=== PATIENT | male | born 1955 | race Caucasian/White ===

== ENCOUNTER 2017-04-18 09:38 | Emergency (ER) | payer SELFPAY ==
[~2017-04-18] VITALS: Ht 170.2 cm; Wt 74.5 kg
[2017-04-18 09:41] VITALS: Ht 170.2 cm; Wt 74.5 kg
[2017-04-18] MEDS ORDERED: ONDANSETRON 4 MG INJ IV STA (10:01)
[2017-04-18] MEDS ORDERED: morphine 4 MG/ML VIAL IV STA (10:01)
[2017-04-18 10:38] LABS: BASOPHILS % 0.8 % (0.0-2.0); EOSINOPHILS % 0.8 % (0.0-7.0); HEMATOCRIT 41.7 % (42.0-52.0); HEMOGLOBIN 14.9 g/dl (14.0-18.0); LYMPHOCYTES # 1.3 10^3/ul (0.8-2.9); LYMPHOCYTES % 26.3 % (15.0-51.0); MEAN CORPUSCULAR HEMOGLOBIN 32.7 pg (29.0-33.0); MEAN CORPUSCULAR HGB CONC 35.7 g/dl (32.0-37.0); MEAN CORPUSCULAR VOLUME 91.4 fl (82.0-101.0); MEAN PLATELET VOLUME 9.1 fl (7.4-10.4); MONOCYTE # 0.4 10^3/ul (0.3-0.9); MONOCYTES % 7.9 % (0.0-11.0); NEUTROPHIL # 3.1 10^3/ul (1.6-7.5); NEUTROPHILS % 63.8 % (39.0-77.0); PLATELET COUNT 204 10^3/UL (140-415); RED BLOOD COUNT 4.56 10^6/ul (4.70-6.10); RED CELL DISTRIBUTION WIDTH 11.9 % (11.5-14.5); WHITE BLOOD COUNT 4.8 10^3/ul (4.8-10.8)
[2017-04-18 10:43] LABS: ADD UMIC YES; UR ASCORBIC ACID NEGATIVE (NEGATIVE); UR BILIRUBIN (Dip) NEGATIVE (NEGATIVE); UR BLOOD (Dip) 1+ mg/dL (NEGATIVE); UR CLARITY CLEAR (CLEAR); UR COLOR STRAW (YELLOW); UR GLUCOSE (Dip) NEGATIVE (NEGATIVE); UR KETONES (Dip) NEGATIVE (NEGATIVE); UR LEUKOCYTE ESTERASE (Dip) NEGATIVE Leu/ul (NEGATIVE); UR NITRITE (Dip) NEGATIVE (NEGATIVE); UR RBC 1 /HPF (0-5); UR SPECIFIC GRAVITY (Dip) 1.003 (1.003-1.030); UR TOTAL PROTEIN (Dip) NEGATIVE (NEGATIVE); UR UROBILINOGEN (Dip) NEGATIVE (NEGATIVE)
--- NOTE | 2017-04-18 10:43 | RADRPT ---
PROCEDURE: CT ABDOMEN AND PELVIS WITHOUT CONTRAST. CLINICAL INDICATION: Lower abdominal pain and periumbilical pain TECHNIQUE: CT scan of the abdomen and pelvis without contrast was performed on a multidetector hig h-resolution CT scanner. The patient was scanned without intravenous contrast. Coronal and sagittal reformatted images were obtained from the axial source images. Images were reviewed on a high-resol [employer] PACS workstation. The total exam CTDI equals 11.8 mGy and the total exam DLP equals 682.1 mGy- cm. One or more of the following dose reduction techniques were used: Automated exposure control. Adjustment of the mA and/or kV according to patient size. Use of iterative reconstruction technique. DICOM images are available COMPARISON: CT 12/26/2012 FINDINGS: CT abdomen: Bilateral bronchiectasis. The lungs are clear. The heart size is within normal limits. There is no s ignificant pericardial effusion. Hepatic morphology demonstrates nodular appearance of the borders of the liver. There is heterogeneo us appearance of the liver parenchyma. The gallbladder demonstrates small gallstones. No evidence of inflammatory changes. The spleen and pancreas are within normal limits. Both adrenal glands are within normal limits. Both kidneys are in normal anatomic position. No gross renal/ureteric calculi. No evidence of obstru ction or hydronephrosis. The visualized GI tract demonstrate normal caliber loops of small and large bowel. No evidence of jennifer wel obstruction. Stool filled loops of large bowel suggestive of constipation. Atherosclerotic calcification of the aorta is identified. There is no retroperitoneal lymphadenopath y. CT pelvis: The bladder is within normal limits. The prostate gland is calcified. The rectosigmoid colon demonst rate diverticulosis. No significant free fluid. No pelvic lymphadenopathy. The visualized osseous structures demonstrate multilevel degenerative disease of the spine. IMPRESSION: 1. Findings are suggestive of liver cirrhosis. Correlate with clinical history. No gross contour def orming masses noted at this time, although examination is limited without IV contrast. 2. Cholelithiasis, without gross CT evidence of inflammatory changes. 3. No gross renal/ureteric calculi. No evidence of obstruction or hydronephrosis. 4. No evidence of bowel obstruction. Sigmoid diverticulosis without evidence of diverticulitis. 5. No evidence of ascites. No evidence of free air or focal fluid collections. 6. Mild atherosclerosis of the aorta. RPTAT: AARR Esteban Townsend Physician Date Time Electronically viewed and signed by Esteban Townsend Physician on 04/18/2017 10:43 JL/
[2017-04-18 10:53] LABS: ALBUMIN 4.8 g/dl (3.3-4.9); ALBUMIN/GLOBULIN RATIO 1.29; BILIRUBIN,INDIRECT 0.7 mg/dl (0-1.1); BILIRUBIN,TOTAL 0.7 mg/dl (0.2-1.3); CALCIUM 9.6 mg/dl (8.4-10.2); CREATININE 0.59 mg/dl (0.61-1.24); POTASSIUM 3.8 mmol/L (3.5-5.1); TOTAL PROTEIN 8.5 g/dl (6.1-8.1)
[2017-04-18] MEDS ORDERED: ONDA4TAB14 PO (11:49)
[2017-04-18] MEDS ORDERED: HYDR-902 PO (11:49)
[2017-04-18 12:23] VITALS: BP 125/79; PULSE 64; RESP 18; TEMP 98.1
--- NOTE | 2017-04-18 13:11 | ERD ---
ER Documentation Chief Complaint Chief Complaint abd pain with pain with urination x yesterday HPI Patient is a 61-year-old male with cirrhosis who presents for abdominal pain. He had lower abdominal pain which started yesterday. It comes and goes. He has no fevers. He has nausea but no vomiting or diarrhea. He has no treatment as of yet. He did have some mild pain with urination. ROS All systems reviewed and are negative except as per history of present illness. Medications Home Meds Active Scripts Ondansetron (Ondansetron Odt) 4 Mg Tab.rapdis, 4 MG PO Q6H Y for NAUSEA AND/OR VOMITING, #10 TAB Prov:YOHANA FLAHERTY MD 04/18/17 Hydrocodone/Acetaminophen ([place] 10-325 Tablet) 1 Each Tablet, 1 TAB PO Q6H Y for PAIN, #7 TAB Prov:YOHANA FLAHERTY MD 04/18/17 Allergies Allergies: Coded Allergies: No Known Allergy (Unverified , 12/26/12) PMhx/Soc History of Surgery: Yes (HERNIA REPAIR) Anesthesia Reaction: No Hx Neurological Disorder: No Hx Respiratory Disorders: No Hx Cardiac Disorders: Yes (HIGH CHOLESTEROL) Hx Psychiatric Problems: No Hx Miscellaneous Medical Probl: No Hx Alcohol Use: Yes Hx Substance Use: No Hx Tobacco Use: No Smoking Status: Former smoker FmHx Family History: No diabetes Physical Exam Vitals Vital Signs Date Time Temp Pulse Resp B/P Pulse Ox O2 Delivery O2 Flow Rate FiO2 04/18/17 12:23 98.1 64 18 125/79 97 Room Air 04/18/17 09:41 98.9 90 19 145/78 96 Physical Exam Const: No acute distress Head: Atraumatic Eyes: Normal Conjunctiva ENT: Normal External Ears, Nose and Mouth. Neck: Full range of motion..~ No meningismus. Resp: Clear to auscultation bilaterally Cardio: Regular rate and rhythm, no murmurs Abd: Soft, lateral lower abdominal tenderness to palpation without rebound or guarding Skin: No petechiae or rashes Back: No midline or flank tenderness Ext: No cyanosis, or edema Neur: Awake and alert Psych: Normal Mood and Affect Result Diagram: 04/18/17 1012 04/18/17 1012 Results 24 hrs Laboratory Tests Test 04/18/17 10:12 White Blood Count 4.810^3/ul Red Blood Count 4.5610^6/ul Hemoglobin 14.9g/dl Hematocrit 41.7% Mean Corpuscular Volume 91.4fl Mean Corpuscular Hemoglobin 32.7pg Mean Corpuscular Hemoglobin Concent 35.7g/dl Red Cell Distribution Width 11.9% Platelet Count 02827^3/UL Mean Platelet Volume 9.1fl Neutrophils % 63.8% Lymphocytes % 26.3% Monocytes % 7.9% Eosinophils % 0.8% Basophils % 0.8% Nucleated Red Blood Cells % 0.0/100WBC Neutrophils # 3.110^3/ul Lymphocytes # 1.310^3/ul Monocytes # 0.410^3/ul Eosinophils # 0.010^3/ul Basophils # 0.010^3/ul Nucleated Red Blood Cells # 0.010^3/ul Urine Color STRAW Urine Clarity CLEAR Urine pH 9.0 Urine Specific [place] 1.003 Urine Ketones NEGATIVEmg/dL Urine Nitrite NEGATIVEmg/dL Urine Bilirubin NEGATIVEmg/dL Urine Urobilinogen NEGATIVEmg/dL Urine Leukocyte Esterase NEGATIVELeu/ul Urine Microscopic RBC 1/HPF Urine Microscopic WBC 0/HPF Urine Hemoglobin 1+mg/dL Urine Glucose NEGATIVEmg/dL Urine Total Protein NEGATIVEmg/dl Sodium Level 142mmol/L Potassium Level 3.8mmol/L Chloride Level 101mmol/L Carbon Dioxide Level 27mmol/L Anion Gap 18 Blood Urea Nitrogen 4mg/dl Creatinine 0.59mg/dl Glucose Level 119mg/dl Calcium Level 9.6mg/dl Total Bilirubin 0.7mg/dl Direct Bilirubin 0.00mg/dl Indirect Bilirubin 0.7mg/dl Aspartate Amino Transf (AST/SGOT) 124IU/L Alanine Aminotransferase (ALT/SGPT) 88IU/L Alkaline Phosphatase 113IU/L Total Protein 8.5g/dl Albumin 4.8g/dl Globulin 3.70g/dl Albumin/Globulin Ratio 1.29 Lipase 137U/L Current Medications Medications (Trade) Dose Ordered Sig/Sofi Route PRN Reason Start Time Stop Time Status Last Admin Dose Admin Morphine Sulfate (morphine) 4 mg ONCE STAT IV 04/18/17 10:01 04/18/17 10:02 DC 04/18/17 10:31 Ondansetron HCl (Zofran Inj) 4 mg ONCE STAT IV 04/18/17 10:01 04/18/17 10:02 DC 04/18/17 10:31 Procedures/MDM CT abdomen pelvis shows no surgical process per radiology. Patient is a 61-year-old male with cirrhosis who presents with abdominal pain and nausea. He had laboratory studies which were basically normal. CT scan shows no surgical process at this time. The patient feels better after pain medications. The patient will be discharged with a prescription for [place] and Zofran. I doubt cholecystitis, pink otitis, appendicitis, or bowel obstruction. The patient can return for any worsening symptoms. Departure Diagnosis: Primary Impression: Abdominal pain Abdominal location: lower abdomen, unspecified Qualified Code: R10.30 - Lower abdominal pain Condition: Fair Patient Instructions: Abdominal Pain Referrals: Your doctor Additional Instructions: Visite a cabrera adrianna villeda para un EXAMEN.Regrese a estas instalaciones si no se mejora sharon esperbamos o sharon haile llamas. YOHANA FLAHERTY MD Apr 18, 2017 13:11
== END 2017-04-18 12:24 | disposition home or self-care (01) ==
LOC: E/R 09:38
DX: R10.30 Lower abdominal pain, unspecified (principal); R40.2252 Coma scale, best verbal response, oriented, at arrival to emergency department; R40.2142 Coma scale, eyes open, spontaneous, at arrival to emergency department; R40.2362 Coma scale, best motor response, obeys commands, at arrival to emergency department; Z87.891 Personal history of nicotine dependence
CPT/HCPCS: 36415; 74176; 80053; 81001; 83690; 85025; 96374; 96375; 99285; J2270; J2405

== ENCOUNTER 2017-08-29 12:37 | Emergency (ER) | END 2017-08-29 18:31 | disposition home or self-care (01) ==

== ENCOUNTER 2018-03-15 10:08 | Day surgery (SDC) | END 2018-03-15 16:55 | disposition home or self-care (01) ==